=== PATIENT | female | born 1995 | race Caucasian/White ===

== ENCOUNTER 2017-01-17 15:38 | Inpatient (IN) | payer OTHER ==
[~2017-01-17] VITALS: Ht 160 cm; Wt 59.9 kg
[~2017-01-17 15:38] MED LIST: ALL DAY ALLERGY10 M2 PO; IMITREX TAB 2525 MG PO; LANTUS100 UNIT/1 SQ; NOVOLOG 10100 UNITS1 SQ; TRAZODONE HCL50 MG PO; TRESIBA FLEX PEN SC; ZOLOFT50 MG PO
[2017-01-17 19:04] LABS: HEMOGLOBIN 11.1 gm/dl (12.3-15.3); RED BLOOD COUNT 3.81 M/UL (4.00-5.10)
[2017-01-17 19:16] LABS: WHITE BLOOD COUNT 35.3 K/UL (4.5-11.0)
[2017-01-17 21:29] LABS: BUN/CREATININE RATIO 11 (0-10)
[2017-01-18 01:47] LABS: BUN/CREATININE RATIO 9 (0-10)
[2017-01-18 05:48] LABS: BUN/CREATININE RATIO 7 (0-10)
[2017-01-18 06:32] LABS: HEMOGLOBIN 8.7 gm/dl (12.3-15.3); RED BLOOD COUNT 3.01 M/UL (4.00-5.10); WHITE BLOOD COUNT 13.7 K/UL (4.5-11.0)
[2017-01-18 08:19] LABS: BUN/CREATININE RATIO 7 (0-10)
[2017-01-18 12:42] LABS: BUN/CREATININE RATIO 6 (0-10)
[2017-01-18 18:29] LABS: BUN/CREATININE RATIO 3 (0-10)
[2017-01-19 00:48] LABS: BUN/CREATININE RATIO 3 (0-10)
[2017-01-19 05:01] LABS: HEMOGLOBIN 8.6 gm/dl (12.3-15.3); RED BLOOD COUNT 3.02 M/UL (4.00-5.10); WHITE BLOOD COUNT 10.5 K/UL (4.5-11.0)
[2017-01-19 06:24] LABS: BUN/CREATININE RATIO 2 (0-10)
[2017-01-19 12:41] LABS: BUN/CREATININE RATIO 3 (0-10)
[2017-01-19 18:50] LABS: BUN/CREATININE RATIO 3 (0-10)
[2017-01-20 00:46] LABS: BUN/CREATININE RATIO 3 (0-10)
[2017-01-20 05:00] LABS: HEMOGLOBIN 8.4 gm/dl (12.3-15.3); RED BLOOD COUNT 2.91 M/UL (4.00-5.10); WHITE BLOOD COUNT 9.6 K/UL (4.5-11.0)
[2017-01-20 06:40] LABS: BUN/CREATININE RATIO 5 (0-10)
[2017-01-20 13:07] LABS: BUN/CREATININE RATIO 6 (0-10)
[2017-01-20 16:27] LABS: BUN/CREATININE RATIO 5 (0-10)
[2017-01-20 20:37] LABS: BUN/CREATININE RATIO 7 (0-10)
[2017-01-21 04:36] LABS: BUN/CREATININE RATIO 8 (0-10)
[2017-01-21 04:39] LABS: HEMOGLOBIN 8.1 gm/dl (12.3-15.3); RED BLOOD COUNT 2.88 M/UL (4.00-5.10); WHITE BLOOD COUNT 8.7 K/UL (4.5-11.0)
[2017-01-21 11:54] LABS: BUN/CREATININE RATIO 7 (0-10)
[2017-01-21 20:33] LABS: BUN/CREATININE RATIO 8 (0-10)
[2017-01-22 04:55] LABS: HEMOGLOBIN 8.1 gm/dl (12.3-15.3)
[2017-01-22 05:17] LABS: BUN/CREATININE RATIO 12 (0-10)
[2017-01-22 12:24] LABS: BUN/CREATININE RATIO 13 (0-10)
[2017-01-22 20:52] LABS: BUN/CREATININE RATIO 14 (0-10)
[2017-01-23 05:50] LABS: HEMOGLOBIN 8.1 gm/dl (12.3-15.3); RED BLOOD COUNT 2.91 M/UL (4.00-5.10)
[2017-01-23 05:51] LABS: WHITE BLOOD COUNT 5.5 K/UL (4.5-11.0)
[2017-01-23 06:10] LABS: BUN/CREATININE RATIO 23 (0-10)
[2017-01-23] MEDS ORDERED: AUGMENTIN TAB875 MG PO (13:17)
[2017-01-23] MEDS ORDERED: FERROUS SULFAT325 MG PO (13:18)
[2017-01-23] MEDS ORDERED: NOVOLOG 10100 UNITS1 INJ (14:57)
== END 2017-01-23 16:00 | disposition home or self-care (01) | DRG 871 ==
LOC: CCU 15:38 → M/S 17:18
PROVIDERS: Hospitalist; Internal Medicine Nephrology; Internal Medicine Pulmonary Disease; ADMIT Family Medicine
PROC: 5A1945Z Respiratory Ventilation, 24-96 Consecutive Hours (ICD-10-PCS; principal; 2017-01-17)
DX: A41.9 Sepsis, unspecified organism (principal); E10.11 Type 1 diabetes mellitus with ketoacidosis with coma; J96.00 Acute respiratory failure, unspecified whether with hypoxia or hypercapnia; G93.40 Encephalopathy, unspecified; E87.0 Hyperosmolality and hypernatremia; N17.9 Acute kidney failure, unspecified; F33.9 Major depressive disorder, recurrent, unspecified; E86.0 Dehydration; K04.7 Periapical abscess without sinus; E87.6 Hypokalemia; D50.9 Iron deficiency anemia, unspecified; E83.39 Other disorders of phosphorus metabolism; Z91.14 Patient's other noncompliance with medication regimen; Z79.4 Long term (current) use of insulin; Z79.899 Other long term (current) drug therapy
CPT/HCPCS: 36415; 36600; 71010; 80048; 80053; 80202; 80307; 81001; 82009; 82330; 82436; 82533; 82550; 82570; 82803; 82962; 83540; 83550; 83605; 83735; 83935; 84100; 84132; 84133; 84156; 84295; 84300; 85014; 85018; 85025; 85027; 86140; 87040; 87070; 87086; 87205; 93005; 94002; 94003; C9113; G0480; J0295; J1644; J1756; J1815; J1940; J2250; J2405; J3370; J3480; J7030; J7040; J7050; J7070

== ENCOUNTER 2017-02-03 21:51 | Emergency (ER) | payer OTHER ==
[~2017-02-03 21:51] MED LIST changes: +AUGMENTIN TAB875 MG PO; +FERROUS SULFAT325 MG PO; +NOVOLOG 10100 UNITS1 INJ
== END 2017-02-03 23:55 | disposition left against medical advice (07) ==
LOC: ER1 21:51
DX: Z53.21 Procedure and treatment not carried out due to patient leaving prior to being seen by health care provider (principal)

== ENCOUNTER 2017-02-19 11:27 | Emergency (ER) | payer OTHER | END 2017-02-19 13:39 | disposition left against medical advice (07) | LOC: ER1 11:27 | DX: L89.613 Pressure ulcer of right heel, stage 3 (principal); E10.9 Type 1 diabetes mellitus without complications | CPT/HCPCS: 36415; 81001; 84703; 99283 ==

== ENCOUNTER 2017-02-25 22:57 | Emergency (ER) | payer OTHER | END 2017-02-26 00:46 | disposition home or self-care (01) | LOC: ER1 22:57 | DX: H00.012 Hordeolum externum right lower eyelid (principal); F17.210 Nicotine dependence, cigarettes, uncomplicated | CPT/HCPCS: 10060; 99282 ==

== ENCOUNTER 2017-03-10 22:24 | Emergency (ER) | payer OTHER | END 2017-03-10 23:04 | disposition left against medical advice (07) | LOC: ER1 22:24 | DX: Z53.21 Procedure and treatment not carried out due to patient leaving prior to being seen by health care provider (principal) ==